=== PATIENT | female | born 1970 | race Caucasian/White ===

== ENCOUNTER 2017-10-17 19:43 | Emergency (ER) | payer MEDICAID, SELFPAY ==
--- NOTE | 2017-10-17 21:00 | RAD ---
CHEST TWO VIEWS 10/17/17 HISTORY: Cough and chills. FINDINGS: The cardiac silhouette and pulmonary vasculature are unremarkable. Mediastinum is midline. There is n o confluent air space consolidation, pneumothorax, or pleural fluid evident. IMPRESSION: No active cardiopulmonary abnormalities are demonstrated. POS: [facility]
== END 2017-10-17 21:52 | disposition home or self-care (01) ==
LOC: ERS 19:43
DX: J20.9 Acute bronchitis, unspecified (principal)
CPT/HCPCS: 71020

== ENCOUNTER 2021-02-14 13:56 | Outpatient (CLI) | payer OTHER | END 2021-02-14 13:57 | disposition home or self-care (01) | LOC: BICRAD 13:56 | PROVIDERS: ATTEND Internal Medicine Rheumatology | DX: M25.562 Pain in left knee (principal); M25.561 Pain in right knee; M25.511 Pain in right shoulder; M17.0 Bilateral primary osteoarthritis of knee; M19.011 Primary osteoarthritis, right shoulder ==

== ENCOUNTER 2023-10-18 10:52 | Outpatient (CLI) | payer OTHER | END 2023-10-18 10:53 | disposition home or self-care (01) | LOC: BICRAD 10:52 | PROVIDERS: ATTEND Internal Medicine | DX: Z02.71 Encounter for disability determination (principal); M47.817 Spondylosis without myelopathy or radiculopathy, lumbosacral region; M17.11 Unilateral primary osteoarthritis, right knee | CPT/HCPCS: 72100 ==